=== PATIENT | female | born 1960 | race Two or more races ===

== ENCOUNTER 2016-06-28 17:10 | Emergency (ER) | payer MEDICAID ==
[2016-06-28] MEDS ORDERED: ONDANSETRON 4 MG ODT TAB ONE (18:34)
[2016-06-28] MEDS ORDERED: SULFAMETHOXAZOLE 800 MG/TRIMETHOPRIM 160 MG TABLET ONE (18:34)
[2016-06-28] MEDS ORDERED: HYDROCODONE/ACETAMINOPHEN 5/325MG TABLET ONE (18:35)
== END 2016-06-28 19:14 | disposition home or self-care (01) ==
LOC: ED 17:10
DX: L02.211 Cutaneous abscess of abdominal wall (principal); L03.311 Cellulitis of abdominal wall
CPT/HCPCS: 87070; 87186; 99283 ×2; 10061 ×2; A9270 ×3